=== PATIENT | female | born 1945 | race Two or more races ===

== ENCOUNTER 2018-04-14 03:20 | Emergency (ER) | payer OTHER ==
[~2018-04-14] VITALS: Ht 157.5 cm; Wt 59.0 kg
[~2018-04-14 03:20] MED LIST: ASA325 M1 PO; ASA81 MG PO; ATENOLOL50 MG; BACLOFEN20 MG PO; FIORICET 50-321 EACH PO; GLYCOTROL CAPS1 EACH; GLYCOTROL CAPS1 EACH PO; LIPITOR20 MG PO; LOTRISONE CREAM45 GM TP; OSTERA TABLET1 EACH; OSTERA TABLET1 EACH PO; PRILOSEC10 M1 PO; TENORMIN25 MG PO; TENORMIN50 M1 PO; ZANTAC150 M3 PO
[2018-04-14] MEDS ORDERED: TOPROL XL25 MG PO (03:26)
[2018-04-14] MEDS ORDERED: PNEU16DI2 (03:27)
[2018-04-14] MEDS ORDERED: AMOXICILLIN875 MG PO (03:27)
== END 2018-04-14 11:56 | disposition home or self-care (01) ==
LOC: ER 03:20 → CPU-OBS 03:30 → ER 03:30
DX: M94.0 Chondrocostal junction syndrome [Tietze] (principal); K29.60 Other gastritis without bleeding; R07.89 Other chest pain; T50.995A Adverse effect of other drugs, medicaments and biological substances, initial encounter; Y92.89 Other specified places as the place of occurrence of the external cause; Z98.890 Other specified postprocedural states

== ENCOUNTER → 2019-08-27 | Emergency (ER) | payer OTHER ==
[~2019-08-27] VITALS: Ht 157.5 cm; Wt 60.8 kg
[~2019-08-27] MED LIST changes: +AMOXICILLIN875 MG PO; +ATACAND4 MG; +IRBESARTAN75 MG; +KETO10TA2 PO; +LIPITOR20 MG; +PNEU16DI2; +PRILOSEC10 M2; +TOPROL XL25 M1; +TOPROL XL25 MG PO; +TRAMADOL HCL50 MG; +VALTREX1000 MG
== END | disposition home or self-care (01) ==
LOC: ER 00:59
DX: M54.5 Low back pain (principal)

== ENCOUNTER 2019-09-29 12:16 | Emergency (ER) | payer OTHER ==
[~2019-09-29] VITALS: Ht 157.5 cm; Wt 60.8 kg
== END 2019-09-29 14:52 | disposition home or self-care (01) ==
LOC: ER 12:16
DX: M62.830 Muscle spasm of back (principal)

== ENCOUNTER 2020-11-15 22:44 | Emergency (ER) | payer OTHER ==
[~2020-11-15] VITALS: Ht 157.5 cm; Wt 59.0 kg
[2020-11-15] MEDS ORDERED: NASAL MIST126 ML (23:11)
[2020-11-15] MEDS ORDERED: METFORMIN HCL500 M2 (23:11)
== END 2020-11-16 14:03 | disposition home or self-care (01) ==
LOC: ER 22:44
DX: I86.8 Varicose veins of other specified sites (principal); B00.89 Other herpesviral infection

== ENCOUNTER → 2020-11-18 | Emergency (ER) | payer OTHER ==
[~2020-11-18] VITALS: Ht 160 cm; Wt 65.8 kg
[~2020-11-18] MED LIST changes: +METFORMIN HCL500 M2; +NASAL MIST126 ML
== END | disposition left against medical advice (07) ==
LOC: ER 16:12
DX: Z53.20 Procedure and treatment not carried out because of patient's decision for unspecified reasons (principal)

== ENCOUNTER 2021-10-02 07:00 | Inpatient (IN) | payer OTHER ==
[~2021-10-02] VITALS: Ht 157.5 cm; Wt 59.0 kg
[2021-10-02] MEDS ORDERED: [UNRECOGNIZED DRUG - OTHER] PO (14:43)
[2021-10-14] MEDS ORDERED: VALACYCLOVIR1000 MG (13:33)
[2021-10-16] MEDS ORDERED: PERCOCET 5-3251 EACH PO ×2 (13:09)
[2021-10-16] MEDS ORDERED: ELIQUIS2.5 MG PO ×2 (13:09)
[2021-10-16] MEDS ORDERED: DUI500 PO ×2 (13:11)
== END 2021-10-17 14:57 | DRG 470 ==
LOC: SURH 10-07 07:00 → O/R 10-14 06:27 → SURH 10-14 17:31
PROVIDERS: ADMIT Orthopaedic Surgery; ATTEND Orthopaedic Surgery
PROC: 0SRC0J9 Replacement of Right Knee Joint with Synthetic Substitute, Cemented, Open Approach (ICD-10-PCS; principal; 2021-10-14 12:15)
PROC: 30233N1 Transfusion of Nonautologous Red Blood Cells into Peripheral Vein, Percutaneous Approach (ICD-10-PCS; 2021-10-15)
DX: M17.11 Unilateral primary osteoarthritis, right knee (principal); D62 Acute posthemorrhagic anemia; M22.11 Recurrent subluxation of patella, right knee; E66.9 Obesity, unspecified; Z20.822 Contact with and (suspected) exposure to COVID-19; E11.9 Type 2 diabetes mellitus without complications; Z79.4 Long term (current) use of insulin; I11.9 Hypertensive heart disease without heart failure

== ENCOUNTER 2021-10-14 08:36 | Outpatient (CLI) | payer OTHER ==
[~2021-10-14 08:36] MED LIST changes: +[UNRECOGNIZED DRUG - OTHER] PO
[2021-10-14] MEDS ORDERED: VALACYCLOVIR1000 MG (13:33)
== END 2021-10-14 08:40 | disposition home or self-care (01) ==
LOC: LAB 08:36
PROVIDERS: ATTEND Anesthesiology
DX: Z20.828 Contact with and (suspected) exposure to other viral communicable diseases (principal)

== ENCOUNTER 2022-03-19 12:56 | Emergency (ER) | payer OTHER ==
[~2022-03-19] VITALS: Ht 157.5 cm; Wt 49.9 kg
[~2022-03-19 12:56] MED LIST changes: +DUI500 PO; +ELIQUIS2.5 MG PO; +PERCOCET 5-3251 EACH PO; +VALACYCLOVIR1000 MG
[2022-03-19] MEDS ORDERED: ATORVASTATIN CA10 MG PO (13:37)
[2022-03-19] MEDS ORDERED: CANDESARTAN CILE8 M1 PO (13:38)
[2022-03-19] MEDS ORDERED: CEFADROXIL500 MG PO (17:13)
== END 2022-03-19 17:28 | disposition home or self-care (01) ==
LOC: ER 12:56
DX: J06.9 Acute upper respiratory infection, unspecified (principal); N30.90 Cystitis, unspecified without hematuria; Z88.8 Allergy status to other drugs, medicaments and biological substances; Z88.1 Allergy status to other antibiotic agents; U07.1 COVID-19

== ENCOUNTER 2022-11-18 10:13 | Emergency (ER) | payer OTHER ==
[~2022-11-18] VITALS: Ht 157.5 cm; Wt 59.9 kg
[~2022-11-18 10:13] MED LIST changes: +ATORVASTATIN CA10 MG PO; +CANDESARTAN CILE8 M1 PO; +CEFADROXIL500 MG PO
[2022-11-18] MEDS ORDERED: PEPCID AC20 MG PO (16:12)
[2022-11-18] MEDS ORDERED: ONDANSETRON ODT4 MG PO (16:12)
[2022-11-18] MEDS ORDERED: BUTALB-ACETAMI1 EAC2 PO (16:12)
== END 2022-11-18 17:40 ==
LOC: ER 10:13
DX: G44.209 Tension-type headache, unspecified, not intractable (principal); K29.70 Gastritis, unspecified, without bleeding; I10 Essential (primary) hypertension; E11.9 Type 2 diabetes mellitus without complications; Z20.822 Contact with and (suspected) exposure to COVID-19

== ENCOUNTER 2025-07-20 14:01 | Emergency (ER) | payer OTHER ==
[~2025-07-20] VITALS: Ht 154.9 cm; Wt 59.0 kg
[~2025-07-20 14:01] MED LIST changes: +BUTALB-ACETAMI1 EAC2 PO; +ONDANSETRON ODT4 MG PO; +PEPCID AC20 MG PO
[2025-07-20] MEDS ORDERED: ATACAND4 MG PO (14:36)
[2025-07-20] MEDS ORDERED: KETOROLAC TROMETHAMINE 30 MG VIAL IM STA (15:36)
[2025-07-20] MEDS ORDERED: ORPHENADRINE CITRATE 30 MG/ML AMPUL IM STA (15:37)
[2025-07-20] MEDS ORDERED: ORPHENADRINE CITRATE 30 MG/ML AMPUL ONE (15:43)
[2025-07-20] MEDS ORDERED: KETOROLAC TROMETHAMINE 30 MG VIAL ONE (15:43)
== END 2025-07-20 16:01 | disposition home or self-care (01) ==
LOC: ER 14:01
DX: M54.9 Dorsalgia, unspecified (principal); Z88.1 Allergy status to other antibiotic agents
CPT/HCPCS: 96372; 99282; J1885; J2360